=== PATIENT | male | born 1945 | race Two or more races ===

== ENCOUNTER 2019-02-11 07:30 | Inpatient (IN) | payer MEDICARE, MEDICAID ==
[~2019-02-11] VITALS: Ht 165.1 cm; Wt 75.3 kg
[2019-02-25] VITALS (13 sets, daily range): BP systolic 135–184; BP diastolic 69–88
[2019-02-25] MEDS ORDERED: ceFAZolin sod 1 GM in NS 55 ML IVPB ONE (07:00)
[2019-02-25] MEDS ORDERED: NORVASC5 MG ORAL (07:31)
[2019-02-25] MEDS ORDERED: FLOMAX0.4 MG ORAL (07:31)
--- NOTE | 2019-02-25 07:52 | Pre-Procedure Note/Attestation ---
Pre-Procedure Note/Attestation Complete Prior to Procedure Planned Procedure: not applicable Procedure Narrative: Laparoscopic radical prostatectomy Indications for Procedure Pre-Operative Diagnosis: prostate cancer Attestation I attest that I discussed the nature of the procedure; its benefits; risks and complications; and alternatives (and the risks and benefits of such alternatives ), prior to the procedure, with the patient (or the patient's legal automotive sales representative). I attest that, if there was a reasonable possibility of needing a blood transfusion, the patient (or the patient's legal automotive sales representative) was given the [facility] standardized written summary, pursuant to the David Capac Blood Safety Act ([place] Health and Safety Code # 1645, as amended). I attest that I re-evaluated the patient just prior to the surgery and that there has been no change in the patient's H&P, except as documented below: Varghese Juan MD Feb 25, 2019 07:52
[2019-02-25] MEDS ORDERED: LR 1000ml 1,000 ML IVLG SCH ×2 (08:29)
[2019-02-25] MEDS ORDERED: Meperidine 50mg/ml Inj(FOR RIGORS ONLY) IVP PRN ×2 (08:30)
[2019-02-25] MEDS ORDERED: fentaNYL 100 mcg/2 mL IV PRN ×2 (08:30)
[2019-02-25] MEDS ORDERED: Ketorolac 30mg Inj IV PRN ×5 (08:30→11:30)
[2019-02-25] MEDS ORDERED: Metoclopramide 10mg/2ml Inj IVP PRN ×2 (08:30)
[2019-02-25] MEDS ORDERED: DiphenhydrAMINE 50mg/ml Inj IVP PRN ×2 (08:30)
[2019-02-25] MEDS ORDERED: HYDROcodone/Acetamin 7.5/325 tab ORAL PRN ×2 (08:30)
[2019-02-25] MEDS ORDERED: Atropine Sulfate 0.4mg/ml inj IVP PRN ×2 (08:30)
[2019-02-25] MEDS ORDERED: oxyCODONE HCL/Acetaminophen 5/325mg ORAL PRN ×2 (08:30)
[2019-02-25] MEDS ORDERED: Labetalol 5mg/ml 20ml vial IV PRN ×2 (08:30)
[2019-02-25] MEDS ORDERED: Acetaminophen (Non formulary) 100 ML IV ONE (08:30)
[2019-02-25] MEDS ORDERED: Hydromorphone 0.5mg/0.5ml inj IVP PRN ×2 (08:30)
[2019-02-25] MEDS ORDERED: HYDROcodone/Acetamin 5/325 tab ORAL PRN ×3 (08:30→11:30)
[2019-02-25] MEDS ORDERED: LORazepam Inj 2mg/ml 1ml IV PRN ×2 (08:30)
[2019-02-25] MEDS ORDERED: Midazolam 2mg/2ml Inj IVP PRN ×2 (08:30)
--- NOTE | 2019-02-25 08:33 | Anethesia Preoperative Eval ---
Anesthesia Pre-op PMH/ROS General Date of Evaluation: Feb 25, 2019 Time of Evaluation: 08:58 Anesthesiologist: Ryann ASA Score: ASA 3 Mallampati Score Class I : Soft palate, uvula, fauces, pillars visible Class II: Soft palate, uvula, fauces visible Class III: Soft palate, base of uvula visible Class IV: Only hard plate visible Mallampati Classification: Class II Surgeon: Yessica Diagnosis: Prostate CA Surgical Procedure: Laparoscopic Radical Prostatectomy Anesthesia History: none Family History: no anesthesia problems Allergies: Coded Allergies: No Known Allergies (Unverified , 02/25/19) Medications: see eMAR Patient NPO?: Yes NPO Date: Feb 24, 2019 NPO Time: 1700 Past Medical History Cardiovascular: Reports: HTN, other - HL Gastrointestinal/Genitourinary: Reports: other - Prostate CA PSxH Narrative: Sinus Sx, Appendectomy Anesthesia Pre-op Phys. Exam Physician Exam Last Vital Signs Date Time Temp Pulse Resp B/P (MAP) Pulse Ox O2 Delivery O2 Flow Rate FiO2 02/25/19 07:46 Room Air 02/25/19 07:32 97.3 67 20 184/88 (120) 98 Constitutional: NAD Neurologic: CN 2-12 intact Cardiovascular: RRR Respiratory: CTA Gastrointestinal: S/NT/ND Airway Exam Mallampati Score: Class II MO: full ROM: limited Teeth: missing, intact Anesthesia Pre-op A/P Risk Assessment & Plan Assessment: ASA 3 Plan: GA, SED, GlideScope Go Status Change Before Surgery: No Pre-Antibiotics Dru Gram Ancef IV Given Within 1 Hr of Incision: Yes Time Given: 09:06 Ralf Garzon MD Feb 25, 2019 08:33
[2019-02-25] MEDS ORDERED: Lidocaine 1% MPF 10mg/ml 5ml ONE ×2 (08:52→10:57)
[2019-02-25] MEDS ORDERED: Propofol 200mg/20ml IV ONE ×2 (08:52→10:57)
[2019-02-25] MEDS ORDERED: Dexamethasone 4mg/ml vial ONE ×2 (08:52→10:57)
[2019-02-25] MEDS ORDERED: fentaNYL 100 mcg/2 mL IV ONE ×2 (08:52→10:57)
[2019-02-25] MEDS ORDERED: Bupivacaine 0.5% Inj 30 ml vial INJ ONE (08:56)
[2019-02-25] MEDS ORDERED: LR 1000ml ONE (09:00)
[2019-02-25] MEDS ORDERED: NS Irrig 1000ml ONE (09:00)
[2019-02-25] MEDS ORDERED: Sterile Water Irrig 1000ml IRRIG ONE (09:00)
[2019-02-25] MEDS ORDERED: ProvayBlue 5mg/ml 10ml amp INJ ONE (09:00)
[2019-02-25] MEDS ORDERED: NS Irrig 1000ml IRRIG ONE ×2 (09:16→10:05)
--- NOTE | 2019-02-25 09:34 | Immediate Post-Op Evaluation ---
Immediate Post-Op Evalulation Immediate Post-Op Evalulation Procedure: Laparoscopic Radical Prostatectomy Date of Evaluation: Feb 25, 2019 Time of Evaluation: 11:49 IV Fluids: 1200 LR Blood Products: 0 Estimated Blood Loss: 200 Urinary Output: 100 Blood Pressure Systolic: 156 Blood Pressure Diastolic: 83 Pulse Rate: 66 Respiratory Rate: 16 O2 Sat by Pulse Oximetry: 100 Temperature (Fahrenheit): 97 Pain Score (1-10): 2 Nausea: No Vomiting: No Complications 0 Patient Status: awake, reacts, patent, extubated, none Hydration Status: adequate Dru Gram Ancef IV Given Within 1 Hr of Incision: Yes Time Given: 09:06 Ralf Garzon MD Feb 25, 2019 09:34
[2019-02-25] MEDS ORDERED: Neostigmine 1mg/ml 10ml Inj ONE (10:40)
[2019-02-25] MEDS ORDERED: Glycopyrrolate 0.2mg/ml 1ml Vial ONE (10:40)
[2019-02-25] MEDS ORDERED: Sodium Chloride 10ml vial INJ ONE (10:57)
[2019-02-25] MEDS ORDERED: Midazolam 2mg/2ml Inj ONE (10:57)
[2019-02-25] MEDS ORDERED: Ketorolac 30mg Inj ONE (11:04)
[2019-02-25] MEDS ORDERED: HYDROmorphone 1mg/ml Carpuject IVP PRN (11:30)
--- NOTE | 2019-02-25 11:31 | Brief Operative Note ---
Immediate Post Operative Note Operative Note Pre-op Diagnosis: prostate cancer Procedure: Laparoscopic Radical Prostatectomy Post-op Diagnosis: same Post-op Diagnosis: same as pre-op Surgeon: Homer Juan Anesthesia: general Specimen: yes Complications: none Condition: stable Fluids: 1000 Estimated Blood Loss: minimal Implant(s) used?: No Varghese Juan MD Feb 25, 2019 11:31
--- NOTE | 2019-02-25 12:49 | NUR ---
NURSE NOTES: Telephone report received from Chantelle ALEXANDER. Patient is not on unit yet.
[2019-02-25 12:57] LABS: HEMATOCRIT 40.9 % (42.0-52.0); HEMOGLOBIN 13.4 G/DL (14.2-18.0); MEAN CORPUSCULAR VOLUME 95 FL (80-99); PLATELET COUNT 235 K/UL (150-450); RED BLOOD COUNT 4.31 M/UL (4.70-6.10); RED CELL DISTRIBUTION WIDTH 11.7 % (11.6-14.8)
--- NOTE | 2019-02-25 13:10 | NUR ---
NURSE NOTES: Patient arrived to unit via bed at 1305 accompanied by RN. Patient is awake and oriented, Estonian speaking, no acute distress noted, reporting no pain at this time. IV intact, patent. On 3L NC. Tate catheter to gravity drainage with pink tinged urine noted. SCD's in place. Abdominal laparoscopic sites assessed, small, pink stain noted on umbilical lap site, stain circled, all other lap sites clean and dry. VS assessed and stable. Patient oriented to room. All belongings sent with family. Side rails upx3, bed low and locked, call light in reach. Will continue to monitor.
[2019-02-25 13:21] LABS: ANION GAP 8 mmol/L (5-15); BLOOD UREA NITROGEN 19 mg/dL (7-18); CALCIUM 9.2 MG/DL (8.5-10.1); CARBON DIOXIDE 30 MMOL/L (21-32); CHLORIDE 103 MMOL/L (98-107); CREATININE 1.4 MG/DL (0.55-1.30); POTASSIUM 3.6 MMOL/L (3.5-5.1); SODIUM 141 MMOL/L (136-145)
--- NOTE | 2019-02-25 13:40 | NUR ---
NURSE NOTES: Called Dr. Cannon and informed MD patient arrived to unit this afternoon at 1305. Received orders for patients home medications Norvasc and Flomax, also received order for PRN clonidine and embolism prevention. Orders read back and entered. Also informed MD of patient's WBC of 14.0, no new orders received regarding elevated WBC.
--- NOTE | 2019-02-25 14:51 | NUR ---
CASE MANAGEMENT:REVIEW 02/25/19 73 YR OLD MALE HERE FOR ELECTIVE SURGERY SI: PROSTATE CANCER 97.5 63 17 145/73 98% ON RA WBC+14.0 CR+1.4 IS: TO SURGERY FOR: LAPAROSCOPIC RADICAL PROSTATECTOMY IV ANCEF Q8HRS IVF@100/HR IV DILAUDID Q3HRS PRN NPO : TO MED/SURG 3 EAST DCP: FROM HOME Addendum: 02/25/19 at 1502 by WEN CRONIN, ARIANNA KELLER INTERQUAL CRITERIA MET
[2019-02-25] MEDS: D5 1/2NS w/KCl 20mEq 1,000 ML IV SCH ×2 (15:31→23:45)
[2019-02-25] MEDS: ceFAZolin sod 2 GM in D5W 110 ML IV SCH ×2 (16:24→23:45)
[2019-02-25] MEDS: Docusate 100mg cap ORAL SCH (18:04)
[2019-02-25] MEDS: Tamsulosin 0.4mg cap ORAL SCH (18:04)
--- NOTE | 2019-02-25 19:45 | NUR ---
HAND-OFF: Report given to Racheal ALEXANDER. Patient is in stable condition.
--- NOTE | 2019-02-25 19:46 | NUR ---
NURSE NOTES: Received report & pt from BENJAMIN Peacock. Pt lying in bed, a&ox4 (Swiss speaking only), in room air, family member at bedside. No s/s of acute distress & no c/o pain at this time. Lap sites x5 intact with 1 stained. IV site intact with IVF running as ordered. Bed in lowest position, call light within reach. Will continue to monitor.
[2019-02-26] VITALS: BP 132/60
[2019-02-26 04:00] VITALS: BP 126/63
[2019-02-26 06:16] LABS: BASOPHILS % (AUTO) 0.3 % (0.0-2.0); EOSINOPHILS % (AUTO) 0.1 % (0.0-3.0); HEMATOCRIT 37.3 % (42.0-52.0); HEMOGLOBIN 12.7 G/DL (14.2-18.0); LYMPHOCYTES % (AUTO) 12.5 % (20.0-45.0); MEAN CORPUSCULAR VOLUME 93 FL (80-99); MONOCYTES % (AUTO) 11.3 % (1.0-10.0); NEUTROPHILS % (AUTO) 75.7 % (45.0-75.0); PLATELET COUNT 226 K/UL (150-450); RED CELL DISTRIBUTION WIDTH 11.3 % (11.6-14.8); WHITE BLOOD COUNT 11.4 K/UL (4.8-10.8)
[2019-02-26 06:24] LABS: ANION GAP 5 mmol/L (5-15); BLOOD UREA NITROGEN 22 mg/dL (7-18); CALCIUM 8.5 MG/DL (8.5-10.1); CARBON DIOXIDE 28 MMOL/L (21-32); CHLORIDE 102 MMOL/L (98-107); CREATININE 1.5 MG/DL (0.55-1.30); POTASSIUM 3.9 MMOL/L (3.5-5.1); SODIUM 135 MMOL/L (136-145)
--- NOTE | 2019-02-26 07:12 | NUR ---
HAND-OFF: Report given to BENJAMIN Albright. Rounds done. Pt in stable condition.
--- NOTE | 2019-02-26 07:53 | NUR ---
NURSE NOTES: Received report from BENJAMIN Springer. Rounding done with outgoing nurse. Pt a/o x 4, in bed. No respiratory distress noted. Denies any pain at this time. Dressing of belly area is stained. Lt hand IV is patent. SCD is on. Tate catheter is in placed, yellowish color noted. Bed in lowest position, call light within reach. Will continue to monitor.
[2019-02-26 08:00] VITALS: BP 133/59
[2019-02-26] MEDS: Tamsulosin 0.4mg cap ORAL SCH ×2 (09:14→17:30)
[2019-02-26] MEDS: Docusate 100mg cap ORAL SCH ×2 (09:15→17:30)
--- NOTE | 2019-02-26 09:15 | NUR ---
PT EVALUATION NOTE Patient seen for initial evaluation, see complete evaluation for details. Patient is indep/supervised with all functional mobility without assistive device. Skilled inpatient PT intervention not warranted, patient is safe to function with nursing supervision. Patient up in bedside chair, call light within reach. Patient discharged from physical therapy, Rayna Reddy RN notified. Addendum: 02/26/19 at 1108 by LORENE SOSA PT Amended: Links added.
[2019-02-26] MEDS: D5 1/2NS w/KCl 20mEq 1,000 ML IV SCH ×2 (10:54→19:59)
--- NOTE | 2019-02-26 11:41 | 48 Hour Post Anesthesia Eval ---
Post Anesthesia Evaluation Procedure: Laparoscopic Radical Prostatectomy Date of Evaluation: Feb 26, 2019 Time of Evaluation: 11:38 Blood Pressure Systolic: 136 0: 74 Pulse Rate: 68 Respiratory Rate: 20 Temperature (Fahrenheit): 97.6 O2 Sat by Pulse Oximetry: 98 Airway: patent Nausea: No Vomiting: No Pain Intensity: 3 Hydration Status: adequate Cardiopulmonary Status: stable Mental Status/LOC: patient returned to baseline Follow-up Care/Observations: n/a Post-Anesthesia Complications: none Follow-up care needed: N/A Rusty Carlin MD Feb 26, 2019 11:41
[2019-02-26 12:00] VITALS: BP 139/62
[2019-02-26 16:00] VITALS: BP 143/69
--- NOTE | 2019-02-26 17:00 | Consultation ---
DATE OF CONSULTATION: 02/26/2019 INTERNAL MEDICINE CONSULTATION HISTORY OF PRESENT ILLNESS: This is a very pleasant 73-year-old male, who is postop day #1 status post radical prostatectomy. At this time, he is doing well. His blood loss yesterday was minimal and he states he is feeling well. This morning, he has been able to tolerate liquid diet but reports that he is feeling nauseous. PAST MEDICAL HISTORY: Notable for prostate CA, hypertension, questionable history of COPD. PAST SURGICAL HISTORY: Include appendectomy and nasal surgery. HOME MEDICATIONS: Include Flomax, Norvasc. SOCIAL HISTORY: He is . [place] in local area. He admits to caffeine, has been smoker in the past. Denies alcohol intake. REVIEW OF SYSTEMS: Denies any headaches, hematemesis, melena, hematochezia, night sweats, or weight loss. PHYSICAL EXAMINATION: GENERAL: Reveals 73-year-old male. HEENT: Unremarkable. LUNGS: Clear breath sounds bilaterally. ABDOMEN: Soft. The patient has diminished bowel sounds. NEUROLOGIC: Nonfocal SKIN: Surgical scar incision is noted. LABORATORY AND DIAGNOSTIC DATA: Lab testing preoperatively is unremarkable expect for creatinine 1.5. Hemoglobin 13. Preop chest x-ray and EKG within normal limits. IMPRESSION: 1. Status post radical prostatectomy postop day #1. 2. Questionable history of COPD. 3. Hypertension. DISCUSSION: I will keep him on clear liquid diet. Tate in place. Bilateral SCDs, IV fluids. Check labs in a.m. We will follow carefully. Bhargav Cannon M.D. DR: Bri JOB#: [id number] CC:
--- NOTE | 2019-02-26 19:37 | NUR ---
HAND-OFF: Report given to BENJAMIN Springer.
--- NOTE | 2019-02-26 19:38 | NUR ---
NURSE NOTES: Received report & pt from BENJAMIN Albright. Pt lying in bed, a&ox4 (Cymraes speaking only), in room air,. No s/s of acute distress & no c/o pain at this time. Lap sites x5 intact with 1 stained. IV site intact with IVF running as ordered. Tate cath intact & draining too gravity. Bed in lowest position, call light within reach. Will continue to monitor.
[2019-02-26 20:00] VITALS: BP 137/71
--- NOTE | 2019-02-26 20:00 | NUR ---
NURSE NOTES: Informed Dr. Ace that one of the lap site's dressings (belly button) is stained & draining a lot. ordered to change the dressing.
[2019-02-27 04:00] VITALS: BP 139/74
[2019-02-27] MEDS: D5 1/2NS w/KCl 20mEq 1,000 ML IV SCH ×2 (05:16→16:00)
[2019-02-27 05:45] LABS: BASOPHILS % (AUTO) 1.2 % (0.0-2.0); EOSINOPHILS % (AUTO) 1.7 % (0.0-3.0); HEMATOCRIT 34.6 % (42.0-52.0); HEMOGLOBIN 11.6 G/DL (14.2-18.0); LYMPHOCYTES % (AUTO) 25.9 % (20.0-45.0); MEAN CORPUSCULAR VOLUME 94 FL (80-99); MONOCYTES % (AUTO) 9.8 % (1.0-10.0); NEUTROPHILS % (AUTO) 61.4 % (45.0-75.0); PLATELET COUNT 191 K/UL (150-450); RED CELL DISTRIBUTION WIDTH 12.1 % (11.6-14.8); WHITE BLOOD COUNT 8.2 K/UL (4.8-10.8)
[2019-02-27 06:02] LABS: ANION GAP 2 mmol/L (5-15); BLOOD UREA NITROGEN 16 mg/dL (7-18); CALCIUM 8.7 MG/DL (8.5-10.1); CARBON DIOXIDE 30 MMOL/L (21-32); CHLORIDE 105 MMOL/L (98-107); CREATININE 1.3 MG/DL (0.55-1.30); POTASSIUM 3.8 MMOL/L (3.5-5.1); SODIUM 137 MMOL/L (136-145)
--- NOTE | 2019-02-27 07:23 | NUR ---
HAND-OFF: Report given to BENJAMIN Albright. Pt in stable condition. Rounds done.
--- NOTE | 2019-02-27 07:54 | NUR ---
NURSE NOTES: Received report from BENJAMIN Springer. No respiratory distress noted. Denies pain at this time. Belly button area dressing is stained. Lt hand IV is patent. Will continue to monitor.
[2019-02-27 08:00] VITALS: BP 149/76
[2019-02-27] MEDS: Tamsulosin 0.4mg cap ORAL SCH ×2 (08:20→18:05)
[2019-02-27] MEDS: Docusate 100mg cap ORAL SCH ×2 (08:20→18:05)
--- NOTE | 2019-02-27 09:08 | Nephrology Progress Note ---
Assessment/Plan Assessment/Plan: A/p 1. Status post radical prostatectomy postop day #2 - DC patient once cleared by Urology. 2. Hypertension.- stable SCDs DC per Urology Subjective Date patient seen: Feb 27, 2019 Time patient seen: 09:04 ROS Limited/Unobtainable: No Allergies: Coded Allergies: No Known Allergies (Unverified , 02/25/19) Subjective Patient resting comfortably in no distress. Objective Last 24 Hour Vital Signs Date Time Temp Pulse Resp B/P (MAP) Pulse Ox O2 Delivery O2 Flow Rate FiO2 02/27/19 08:20 78 149/76 02/27/19 08:00 98.0 78 20 149/76 (100) 95 02/27/19 04:00 97.5 68 16 139/74 (95) 95 02/26/19 21:00 Room Air 02/26/19 20:00 97.9 79 17 137/71 (93) 95 02/26/19 16:00 98.1 81 18 143/69 (93) 95 02/26/19 12:00 98.0 76 17 139/62 (87) 95 02/26/19 11:41 68 20 98 02/26/19 09:14 74 133/59 Intake and Output 02/26/19 02/27/19 19:00 07:00 Intake Total 1100 ml 2340 ml Output Total 1800 ml 1900 ml Balance -700 ml 440 ml Intake Oral 1240 ml IV Total 1100 ml 1100 ml Output Urine Total 1800 ml 1900 ml Laboratory Tests 02/27/19 05:05: White Blood Count 8.2, Red Blood Count 3.70L, Hemoglobin 11.6L, Hematocrit 34.6L , Mean Corpuscular Volume 94, Mean Corpuscular Hemoglobin 31.4H, Mean Corpuscular Hemoglobin Concent 33.6, Red Cell Distribution Width 12.1, Platelet Count 191, Mean Platelet Volume 5.9L, Neutrophils (%) (Auto) 61.4, Lymphocytes ( %) (Auto) 25.9, Monocytes (%) (Auto) 9.8, Eosinophils (%) (Auto) 1.7, Basophils (%) (Auto) 1.2, Sodium Level 137, Potassium Level 3.8, Chloride Level 105, Carbon Dioxide Level 30, Anion Gap 2L, Blood Urea Nitrogen 16, Creatinine 1.3, Estimat Glomerular Filtration Rate , Glucose Level 105, Calcium Level 8.7 Height (Feet): 5 Height (Inches): 5.00 Weight (Pounds): 166 General Appearance: no apparent distress, alert EENT: normal ENT inspection Neck: normal alignment, supple Cardiovascular: normal rate, regular rhythm Respiratory/Chest: lungs clear, normal breath sounds Abdomen: non tender, soft Edema: no edema noted Arm (L), no edema noted Arm (R), no edema noted Leg (L), no edema noted Leg (R), no edema noted Pedal (L), no edema noted Pedal (R), no edema noted Generalized Samy Gomez MD Feb 27, 2019 09:08
[2019-02-27] MEDS ORDERED: Milk of Magnesia 30ml Ud ORAL PRN (10:15)
[2019-02-27] MEDS ORDERED: Ketorolac 30mg Inj IV PRN (10:46)
[2019-02-27 12:00] VITALS: BP 141/73
[2019-02-27 16:00] VITALS: BP 130/70
--- NOTE | 2019-02-27 16:06 | NUR ---
CASE MANAGEMENT:REVIEW 02/27/19 SI: POD#2 LAPAROSCOPIC RADICAL PROSTATECTOMY 98.0 90 20 130/70 96% ON RA H/H-11.6/34.6 IS: LEVAQUIN PO QD NORVASC PO QD PEPCID PO BID IVF@100/HR : MED/SURG STATUS 3 EAST DCP: FROM HOME PLAN: ADVANCE TO FULL LIQUID
--- NOTE | 2019-02-27 18:19 | NUR ---
NURSE NOTES: Pt tolerated with full liquid. No pain noted. No nausea noted. Asked Dr. Juan and ordered ok to advance to soft diet. Noted and carried out.
--- NOTE | 2019-02-27 19:49 | NUR ---
NURSE NOTESPatient received from [facility]A FOUNTAIN R.N. . Patient A/A/OX4 Icelandic and Chadian speaking. Patient denies any pain at this time . no s/s of distress noted LH g#20 D51/2 ns with 20 kcl infusing well. abdominal dressing x5 lap site C/D/I Patient on SCDS in place.Patient IS at bed side Patient tolerating well . marcelo catheter draining to yellow urine . call light within reach . bed in low position at all times . will continue to monitor. Addendum: 02/28/19 at 0337 by JASWINDER SETHI LVN IVF Received 800cc infusing well . Patient ambulated to negron way x3 with steady gait . safety/ fall precautions . call light within reach . bed in low position at all times .Will continue to monitor
--- NOTE | 2019-02-27 19:49 | NUR ---
HAND-OFF: Report given to Niya, INGOT HEADER. Pt is in stable condition.
[2019-02-27 20:00] VITALS: BP 144/77
[2019-02-28] VITALS: BP 132/75
[2019-02-28] MEDS: D5 1/2NS w/KCl 20mEq 1,000 ML IV SCH (01:21)
--- NOTE | 2019-02-28 03:45 | Operative Note - Dictated ---
DATE OF OPERATION: 02/25/2019 PREOPERATIVE DIAGNOSIS: Prostate cancer. POSTOPERATIVE DIAGNOSIS: Prostate cancer. OPERATIONS: Laparoscopic radical prostatectomy. OPERATED BY: Varghese Juan M.D. ANESTHESIA: General. GOLD NIB GRINDER: Dr. Dash Mcdonough. FINDINGS: Enlarged prostate. INDICATIONS FOR SURGERY: The patient was diagnosed with prostate cancer. Treatment options were explained to him in great length including all potential complications. He signed the consent. PROCEDURE IN DETAIL: The patient was brought to the operating room, placed in supine position, and prepped and draped in standard fashion. Under general anesthesia, Veress needle was placed in the supraumbilical position. Pneumoperitoneum was created to 15 mmHg. After that 5 trocars, two 12 and three 5s were placed and left indwelling. Dr. Mcdonough performed lysis of adhesions of the sigmoid colon and also ascending colon after . After that I developed axis to the retrovesical space. Seminal vesicles and vas deferens were clipped and severed opening Denonvilliers fascia. Dissection was carried anteriorly bladder from the pubis and the dorsal venous complex was dissected and transected with the Endo-FOSTER and the pelvic fascia was opened with Harmonic Scalpel. Bladder neck sparing technique was used to separate the prostate from the bladder neck. Some bladder neck margins were sent for frozen section and showed negative for cancer. After the prostate was removed from both sides preserving both neurovascular bundles to the apex, the apex was transected to the scissors. Good urethral stump. A Tate catheter 20-Thai was inserted into the bladder through the using running 2-0 Monocryl suture, the anastomosis was created. The bladder was irrigated. No evidence of leaks. Prostate was removed the endobag. All sponge count and instrument count was correct. There was no evidence of bleeding. Trocars were removed and the wound was closed in multiple layers. Tyrel for the skin. The patient tolerated the procedure well. No complications. Varghese Juan M.D. DR: ROYAL JOB#: [id number] CC:
[2019-02-28 04:00] VITALS: BP 139/74
--- NOTE | 2019-02-28 07:10 | NUR ---
HAND-OFF: Report given to CHA FOUNTAIN R.N. Patient on stable conditions.
--- NOTE | 2019-02-28 07:45 | NUR ---
NURSE NOTES: Received report from ARIANNA Núñez. Rounding done with outgoing nurse. Pt a/o x 4, walking in the room. Denies pain at this time. Abdominal surgical site is C/D/I. Will continue to monitor.
[2019-02-28 08:00] VITALS: BP 146/83
[2019-02-28] MEDS: Tamsulosin 0.4mg cap ORAL SCH (08:51)
[2019-02-28] MEDS: Docusate 100mg cap ORAL SCH (08:51)
[2019-02-28 12:00] VITALS: BP 144/83
--- NOTE | 2019-02-28 12:08 | NUR ---
NURSE NOTES: Dr. Juan came and see the pt. ordered d/c home with marcelo catheter with leg bag. Continue Norvasc, Discontinue flomax. Noted and carried out.
[2019-02-28] MEDS ORDERED: LEVAQUIN500 MG ORAL (12:43)
[2019-02-28] MEDS ORDERED: NORCO 5-325 TA1 EACH ORAL (12:43)
[2019-02-28] MEDS ORDERED: COLACE100 MG ORAL (12:44)
--- NOTE | 2019-02-28 13:30 | NUR ---
NURSE NOTES: Discharge instruction was given to pt and also given to son via phone. Written prescription was given to pt. All belongings checked with pt and given to pt. IV access, arm band were removed. Patient discharged with marcelo catheter with leg bag in stable condition.
--- NOTE | 2019-03-02 11:48 | Discharge Summary ---
Discharge Summary Hospital Course Date of Admission Feb 25, 2019 at 06:18 Date of Discharge Feb 28, 2019 at 14:00 Admitting Diagnosis Prostate cancer Reason for Hospitalization: elective surgery CELESTE Allen is a 73 year old male who was admitted on Feb 25, 2019 at 06:18 for Prostate Cancer Consultations dr Cannon- IM Procedures s/p 02/25/[address] Juan Laparoscopic radical prostatectomy. Hospital Course status post surgery course of recovery uneventful initially IV fluids s/p perioperative antibiotics small laparoscopic incisions clean , dry, and intact pain management addressed , pain controlled patient remans hemodynamically stable ambulated with PT fall precautions maintained; safe for ambulation DVT prophylaxis with SCD provided use of incentive spirometry was encouraged while in the bed tolerated diet , IV fluids discontinued GI prophylaxis provided antiemetics were on board as needed blood pressure was managed with Norvasc and remained stable stool softener started Tate catheter drained yellow urine, patient was discharged with catheter and leg bag Levaquin continued initial leukocytosis resolved; patient remains afebrile renal paramerts and electrolytes were closely monitored, creatinine down to 1.3 patient was stable for discharge discharge instructions provided written prescription provided for Levaquin, Vevay and Colace provided follow up with urologist as advised by urologist in clinic as outpatient fup with pathology results FINAL DIAGNOSES Prostate cancer s/p Laparoscopic radical prostatectomy Hypertension Discharge Medications Continued Medications: Amlodipine Besylate (Norvasc) 5 Mg Tablet 5 MG ORAL DAILY, TAB (This prescription has been renewed) Docusate Sodium* (Colace*) 100 Mg Capsule 100 MG ORAL TWICE A DAY, #60 CAP (This prescription has been renewed) Hydrocodone Bit/Acetaminophen 5-325* (Vevay 5-325*) 1 Each Tablet 1 TAB ORAL Q6H PRN for For Pain, #20 TAB 0 Refills (This prescription has been renewed) Levofloxacin* (Levaquin*) 500 Mg Tablet 500 MG ORAL DAILY, #7 TAB (This prescription has been renewed) Discontinued Medications: Tamsulosin HCl (Flomax) 0.4 Mg Cap.er.24h 0.4 MG ORAL BID, CAP Discharge Condition Upon Discharge: stable Discharge Disposition Patient was discharged home Discharge Instructions Discharge Instructions Special Instructions I have been assigned to complete a D/C Summary on this account. I was not involved in the patient management Rosalba Webb NP Mar 02, 2019 11:48
== END 2019-02-28 14:00 | disposition home or self-care (01) | DRG 708 ==
LOC: SDSOVERFLO 02-25 06:18 → 3E 02-25 13:05
PROC: 0VT04ZZ Resection of Prostate, Percutaneous Endoscopic Approach (ICD-10-PCS; principal; 2019-02-25 08:30)
DX: C61 Malignant neoplasm of prostate (principal); I10 Essential (primary) hypertension; J44.9 Chronic obstructive pulmonary disease, unspecified; R11.0 Nausea
CPT/HCPCS: 36415; 80048; 85007; 85025; 86850; 86900; 86901; 87081; 94003; 94150; J2250; J2405; J2710